=== PATIENT | male | born 1995 | race Two or more races ===

== ENCOUNTER 2024-04-01 01:23 | Emergency (ER) | payer OTHER, SELFPAY ==
[~2024-04-01] VITALS: Ht 170.2 cm; Wt 104.5 kg
[2024-04-01 02:18] LABS: Basophils # (auto) 0 10 ^3/uL (0-0.2); Eosinophils # (auto) 0.1 10 ^3/uL (0-0.8); Eosinophils % (auto) 1.3 % (0.0-7.0); Monocytes # (auto) 0.5 10 ^3/uL (0-1.3); Red Cell Distribution Width 13.7 % (11.8-14.3)
[2024-04-01 02:20] LABS: Basophils % (auto) 0.4 % (0.0-2.0); Hematocrit 41.8 % (41.0-53.0); Lymphocytes # (auto) 4.8 10 ^3/uL (0.4-5.4); Lymphocytes % (auto) 48.4 % (10.0-50.0); Mean Corpuscular Volume 86.1 fL (80.0-100.0); Neutrophils # (auto) 4.5 10 ^3/uL (1.6-8.6); Neutrophils % (auto) 44.9 % (37.0-80.0); Nucleated Red Blood Cells % 0.5 %; Platelet Count (auto) 303 10^3/uL (140-450); Red Blood Cells 4.86 10^6/uL (4.5-5.90); White Blood Cell 9.9 10^3/uL (4.4-10.8)
[2024-04-01 02:40] LABS: Hemoglobin 15.1 g/dL (13.5-17.5); Mean Corpuscular Hemoglobin 29.9 pg (28.0-32.0)
--- NOTE | 2024-04-01 03:03 | DVH ---
Examination: CXRP Clinical Indication: CP Comparison: None. Technique: Frontal radiograph of the chest was obtained. Findings: Both the lung blackwood appear clear. Both the costophrenic and cardiophrenic angles are normal. No pleural effusion is seen. Bony thorax appears normal. Cardiac size is within normal limits. Impression: No significant abnormality is seen. Electronically Signed 04/01/2024 03:02 Clara Robbins
[2024-04-01 03:23] LABS: Chloride 105 mmol/L (98-107); Sodium 139 mmol/L (136-145)
[2024-04-01 03:24] LABS: Anion Gap 15 (5-15)
[2024-04-01 03:25] LABS: Calcium 9.8 mg/dL (8.7-10.4)
[2024-04-01 03:29] LABS: Glucose 106 mg/dL (74-106)
[2024-04-01 03:32] LABS: BUN/Creatinine Ratio 18.9 (10.0-20.0)
[2024-04-01 03:41] LABS: Blood Urea Nitrogen 17 mg/dL (9-23); Carbon Dioxide 19 mmol/L (20-31); Potassium 4.5 mmol/L (3.5-5.1)
--- NOTE | 2024-04-01 03:47 | ED.PDOC ---
History of Present Illness HPI Comments 28 y/o M presents with c/o left-upper chest pain, shortness of breath, and left- arm numbness, today. Patient endorses on sudden and unprovoked onset of symptoms when attempting to go to sleep at around 2300, yesterday, while at home. Patient comments on pain being constant and unchanged from initial pain scale value of 4/10 and having no prior history of symptoms in the past. He also states on difficulty breathing symptom subsiding on its own. Patient reports no further relevant or pertinent information, such as recent injuries, strenuous activities, stressors, or sick contact exposure. He denies having any nausea, vomiting, palpitations, fever, chills, or other associated symptoms or modifiers at this time. Chief Complaint: Chest Pain Time Seen by MD: 03:20 Reviewed Notes: Nurses Notes, Medications, Allergies Information Source: Patient Mode of Arrival: Ambulatory Severity: Moderate Timing: Hours Duration: Since onset Prehospital treatment: None Review of Systems: REVIEW OF SYSTEMS: No fever, no chills, or fatigue HEENT: No sore throat, no earache, no congestion, no neck pain. Cardiac: Chest pain. No palpitations. Lungs: Shortness of breath, no cough. GI: No nausea, no vomiting, no diarrhea, no constipation, no abdominal pain : No dysuria, frequency, or urgency. No hematuria. Musculoskeletal: No joint pain , no joint swelling, no extremity edema. Skin: No rash, no itching. Neuro: Left-arm numbness, no headache, no dizziness, no weakness Vital Signs Vital Signs Date Time Temp Pulse Resp B/P (MAP) Pulse Ox O2 Delivery O2 Flow Rate FiO2 04/01/24 03:47 65 04/01/24 01:33 98.2 18 131/86 (101) 97 Physical Exam General: Awake, alert and oriented. No acute distress. Skin: Skin in warm, dry and intact. Appropriate color for ethnicity. HEENT: The head is normocephalic and atraumatic. Conjunctivae are clear without exudates or hemorrhage. Sclera is non-icteric. EOM are intact. No signs of nystagmus. Eyelids are normal in appearance without swelling or lesions. Oral mucosa is pink and moist Neck: The neck is supple with normal range of motion. No JVD. Cardiac: Heart rate and rhythm are normal. No murmurs, gallops, or rubs are auscultated. Respiratory: No signs of respiratory distress. Lung sounds are clear in all lobes bilaterally without rales, ronchi, or wheezes. Abdominal: Abdomen is soft, non-tender without distention. Bowel sounds are present and normoactive in all four quadrants. Extremities: Upper and lower extremities are atraumatic in appearance without deformity or edema. Neurological: The patient is awake, alert and oriented to person, place, and time with normal speech. Speech is clear. There is no facial asymmetry. Psychiatric: Appropriate mood and affect. Good judgement and insight. No visual or auditory hallucinations. Past Medical History Past Medical History (Other): obesity Surgical History: Denies all surgeries Family History Family History: Family hx of stroke Social History Smoker: Non-Smoker Alcohol: Denies ETOH Use Drugs: Denies Drug Use Lives In: Home Was a procedure done? Was a procedure done?: No EKG EKG #1: Pulse Rate (adult): 77 [place]: LAD Cardiac Rhythm: NSR Block: None Hypertrophy: None ST: Normal EKG #2: Pulse Rate (adult): 65 [place]: LAD Cardiac Rhythm: NSR Block: None Hypertrophy: None ST: Normal Differential Dx Considerations may include: AL, PE, URI, PNA, Costochondritis, Pericarditis, Anxiety, musculoskeletal pain X-Ray, Labs, Meds, VS Vital Signs Date Time Temp Pulse Resp B/P (MAP) Pulse Ox O2 Delivery O2 Flow Rate FiO2 04/01/24 03:47 65 04/01/24 03:04 65 04/01/24 01:33 78 04/01/24 01:33 98.2 78 18 131/86 (101) 97 04/01/24 01:30 77 Lab Test 04/01/24 02:29 04/01/24 01:38 Range/Units Troponin I High Sensitivity < 3 L < 3 L </=54 ng/L White Blood Count 9.9 4.4-10.8 10^3/uL Red Blood Count 4.86 4.5-5.90 10^6/uL Hemoglobin 15.1 13.5-17.5 g/dL Hematocrit 41.8 41.0-53.0 % Mean Corpuscular Volume 86.1 80.0-100.0 fL Mean Corpuscular Hemoglobin 29.9 28.0-32.0 pg Mean Corpuscular Hemoglobin Concent 35.0 32.0-36.0 g/dL Red Cell Distribution Width 13.7 11.8-14.3 % Platelet Count 303 140-450 10^3/uL Mean Platelet Volume 8.9 6.9-10.8 fL Neutrophils (%) (Auto) 44.9 37.0-80.0 % Lymphocytes (%) (Auto) 48.4 10.0-50.0 % Monocytes (%) (Auto) 5.0 0.0-12.0 % Eosinophils (%) (Auto) 1.3 0.0-7.0 % Basophils (%) (Auto) 0.4 0.0-2.0 % Neutrophils # (Auto) 4.5 1.6-8.6 10 ^3/uL Lymphocytes # (Auto) 4.8 0.4-5.4 10 ^3/uL Monocytes # (Auto) 0.5 0-1.3 10 ^3/uL Eosinophils # (Auto) 0.1 0-0.8 10 ^3/uL Basophils # (Auto) 0 0-0.2 10 ^3/uL Nucleated Red Blood Cells 0.5 % Sodium Level 139 136-145 mmol/L Potassium Level 4.5 3.5-5.1 mmol/L Chloride Level 105 98-107 mmol/L Carbon Dioxide Level 19 L 20-31 mmol/L Anion Gap 15 5-15 Blood Urea Nitrogen 17 9-23 mg/dL Creatinine 0.90 0.700-1.30 mg/dL Glomerular Filtration Rate Calc 119 >90 mL/min BUN/Creatinine Ratio 18.9 10.0-20.0 Serum Glucose 106 74-106 mg/dL Calcium Level 9.8 8.7-10.4 mg/dL [place] [id number] Ph: [phone] DIAGNOSTIC IMAGING Diagnostic Imaging Report : [id number] Signed PATIENT: JAMIL BETH ACCT: [id number] UNIT: [id number] : 1995 LOC: ER ROOM / BED: / AGE / SEX: 28 / M ADM STATUS: REG ER SERVICE [id number] ORDERING PHYSICIAN: ER PROCEDURE(s): CXRP - CHEST PORTABLE REASON: CP ORDER NUMBER(s): [id number], ACCESSION NUMBER(s): [id number] Examination: CXRP Clinical Indication: CP Comparison: None. Technique: Frontal radiograph of the chest was obtained. Findings: Both the lung blackwood appear clear. Both the costophrenic and cardiophrenic angles are normal. No pleural effusion is seen. Bony thorax appears normal. Cardiac size is within normal limits. Impression: No significant abnormality is seen. Electronically Signed 04/01/2024 03:02 Clara Robbins ATED BY: PRESTON MORROW MD DICTATED DATE/TIME: 04/01/24301 SIGNED BY: PRESTON MORROW MD SIGNED DATE/TIME: 04/01/24301 CC: Time of 1ST Reevaluation: 03:50 Reevaluation 1ST: Unchanged Patient Education/Counseling: Diagnosis, Treatment Family Education/Counseling: No Family Present Additional Information Extensive evaluation was performed in attempt to identify or rule out: (See differential diagnosis section) The following tests were ordered, and results were reviewed by me: (See diagnostic results section) The following test were independently interpreted by me: N/A I reviewed and agreed with the following test results read by other providers: N/A I reviewed the following notes from the pt's past medical encounters: N/A Additional information was gathered from interviewing the following independent historians: N/A Discussion of management or test interpretation with external physician/other qualified health career guidance technician: N/A Addressed [ ]one or more chronic illnesses with severe exacerbation, progression, or side effects of treatment: [ ]an acute or chronic illness that poses a threat to life or bodily function: [ ] Decision regarding hospitalization or escalation of hospital level of care: Risk and benefits of admission for further treatment of patient's condition was considered. Due to patient's current clinical condition, high risk of decline and poor outcome if discharged and need for further inpatient management and monitoring, patient will be admitted to the hospital. Drug therapy requiring intensive monitoring for toxicity: N/A Parenteral controlled substances: N/A Decision regarding elective major surgery with identified patient or procedure risk factors: N/A Decision regarding emergency major surgery: N/A Decision not to resuscitate or to de-escalate care because of poor prognosis: N/A Diagnosis or treatment significantly limited by social determinants of health: N/A Decision regarding hospitalization or escalation of hospital level of care: R isks and benefits of admission for further treatment of patient's condition was considered however due to patient's stable condition patient will be discharged to follow up closely or return to care for worsening of condition or inability to follow up. Departure 1 Departure Time of Disposition: 04:12 Impression: Primary Impression: Chest pain Disposition: 01 HOME / SELF CARE / HOMELESS Condition: Stable Additional Instructions: ED DISCHARGE INSTRUCTIONS Instructions: Please read all instructions provided in this packet carefully. Although you have been discharged from the Emergency Department, this does not mean that you have a "clean bill of health". No definitive diagnosis for your symptoms has been made today. It is possible that you are in the process of developing a serious illness. This is why you must return to the ED without fail if any new or worsening symptoms (especially if your symptoms include chest pain, trouble breathing, abdominal pain, fever, headache, confusion, trouble seeing, or trouble walking) It is also very important that you see a primary care doctor within the next 3-5 days to follow up. If you are unable to get an appointment, return to the ED for re-evaluation. CHEST PAIN EDUCATION There are many things that can cause chest pain. Some are not serious and will get better on their own in a few days. But some kinds of chest pain need more testing and treatment. Your doctor may have recommended a follow-up visit in the next few days. If you are not getting better, you may need more tests or treatment. Even though your doctor has released you, you still need to watch for any problems. The doctor carefully checked you, but sometimes problems can develop later. If you have new symptoms or if your symptoms do not get better, get medical care right away. If you have worse or different chest pain or pressure that lasts more than 5 minutes or you passed out (lost consciousness), call 911 or seek other emergency help right away. A medical visit is only one step in your treatment. Even if you feel better, you still need to do what your doctor recommends, such as going to all suggested follow-up appointments and taking medicines exactly as directed. This will help you recover and help prevent future problems. How can you care for yourself at home? Rest until you feel better. Take your medicine exactly as prescribed. Call your doctor if you think you are having a problem with your medicine. Do not drive after taking a prescription pain medicine. When should you call for help? Call 911 if: You passed out (lost consciousness). You have severe difficulty breathing. You have symptoms of a heart attack. These may include: Chest pain or pressure, or a strange feeling in your chest. Sweating. Shortness of breath. Nausea or vomiting. Pain, pressure, or a strange feeling in your back, neck, jaw, or upper belly or in one or both shoulders or arms. Lightheadedness or sudden weakness. A fast or irregular heartbeat. After you call 911, the milk drying machine operator may tell you to chew 1 adult-strength or 2 to 4 low-dose aspirin. Wait for an ambulance. Do not try to drive yourself. Call your doctor now or seek immediate medical care if: You have any trouble breathing. You have new or different chest pain. You are dizzy or lightheaded, or you feel like you may faint. Watch closely for changes in your health, and be sure to contact your doctor if you do not get better as expected. Current as of: September 20, 2023 Author: [employer] Staff? Comments 28-year-old male with chest pain. Patient has no significant past medical history. He has no risk factors. No family history of cardiac disease. EKG negative for signs of ischemia. High sensitivity troponin negative. CXR shows no acute process. Presentation not suggestive of acute coronary syndrome, pulmonary embolism or aortic dissection. Patient improved at time of discharge. No hypo maggie, respiratory distress or dyspnea at discharge. Patient able to ambulate without difficulty. - I reviewed the following notes from the pt's past medical encounters: N/A The following tests were ordered, and results were reviewed by me: (See diagnostic results section) The following test were independently interpreted by me: EKG Additional information was gathered from interviewing the following independent historians: (N/A) I reviewed and agreed with the following test results read by other providers: Chest x-ray I discussed treatments and results with medical personnel and: N/A Decision regarding hospitalization or escalation of hospital level of care: Risks and benefits of admission for further treatment of patient's condition was considered however due to patient's stable condition patient will be discharged to follow up closely or return to care for worsening of condition or inability to follow up. Critical Care Note Critical Care Time?: No Stability Stability form required: No Heart Score Heart Score: Heart Score Response (Comments) Value History N/A 0 EKG Normal 0 Age <45 0 Risk Factors No known risk factors 0 Troponin Normal limit 0 Total 0 I personally scribed for ISABEL GONZALEZ MD ([email or web address]) on 04/01/24 at 03:47. Electronically submitted by Agapito Vera ([email or web address]). ISABEL GONZALEZ MD Apr 01, 2024 03:47
[2024-04-01 05:05] VITALS: BP 128/74; PULSE 60; RESP 12; TEMP 98; O2SAT 97
[2024-04-01] MEDS: ACETAMINOPHEN 500 MG TAB or CAP PO ONE (05:10)
[2024-04-01] MEDS: ASPirin 81 mg TAB PO ONE (05:10)
--- NOTE | 2024-04-01 07:07 | ECG ---
[facility] Test Date: 2024-04-01 Test Time: 03:04:24 Pat Name: JAMIL BETH Department: ER Room: Gender: M Paperhanger: : 1995 Requested By: EMERGENCY EMERGENCY Order Number: [id number] Reading MD: Josh Asher Measurements Intervals [place] Rate: 65 P: -10 IA: 154 QRS: -62 QRSD: 99 T: 11 QT: 401 QTc: 417 Interpretive Statements Sinus rhythm Left axis deviation Electronically Signed On 04-04-2024 10:37:40 PST by Josh Asher Please click the below link to view image of tracing.
--- NOTE | 2024-04-01 07:07 | ECG ---
[facility] Test Date: 2024-04-01 Test Time: 01:30:28 Pat Name: JAMIL BETH Department: ER Room: Gender: M Band Sewer: : 1995 Requested By: EMERGENCY EMERGENCY Order Number: [id number] Reading MD: Josh Asher Measurements Intervals [place] Rate: 77 P: 14 IA: 149 QRS: -83 QRSD: 98 T: 23 QT: 396 QTc: 449 Interpretive Statements Sinus rhythm Left axis deviation Electronically Signed On 04-04-2024 10:37:37 PST by oJsh Asher Please click the below link to view image of tracing.
== END 2024-04-01 05:22 | disposition home or self-care (01) ==
LOC: ER 01:23
DX: R07.89 Other chest pain (principal); E66.9 Obesity, unspecified; Z68.36 Body mass index [BMI] 36.0-36.9, adult
CPT/HCPCS: 36415; 71045; 80048; 84484; 85025; 93005